=== PATIENT | female | born 1970 | race Caucasian/White ===

== ENCOUNTER 2024-02-25 07:35 | Outpatient (CLI) | payer MEDICAID ==
[2024-02-25 07:46] LABS: BASOPHILS % (AUTO) 0.5 %; EOSINOPHILS # (AUTO) 0.1 10^3/uL (0.0-0.7); EOSINOPHILS % (AUTO) 1.9 %; LYMPHOCYTES # (AUTO) 1.9 10^3/uL (1.5-3.5); LYMPHOCYTES % (AUTO) 32.9 %; MEAN CORPUSCULAR HEMOGLOBIN 29.5 pg (27.0-31.0); MEAN CORPUSCULAR HGB CONC 31.8 g/dL (32.0-36.0); MEAN CORPUSCULAR VOLUME 92.8 fL (81.0-99.0); MEAN PLATELET VOLUME 9.7 fL (7.9-10.8); MONOCYTES # (AUTO) 0.4 10^3/uL (0.0-1.0); MONOCYTES % (AUTO) 7.1 %; NEUTROPHILS # (AUTO) 3.3 10^3/uL (1.5-6.6); NEUTROPHILS % (AUTO) 57.4 %; PLT - PLATELET COUNT 272 10^3/uL (130-450); RED BLOOD COUNT 4.74 10^6/uL (4.20-5.40); WHITE BLOOD COUNT 5.7 x10^3/uL (4.8-10.8)
[2024-02-25 08:00] LABS: ALBUMIN 4.3 g/dL (3.2-5.5); ALBUMIN/GLOBULIN RATIO 1.7 (1.0-2.2); ALKALINE PHOSPHATASE 47 IU/L (42-121); ALT ALANINE AMINOTRANSFERASE 20 IU/L (10-60); AST ASPARTATE AMINOTRANSFERASE 17 IU/L (10-42); BILIRUBIN,TOTAL 0.7 mg/dL (0.2-1.0); BUN - BLOOD UREA NITROGEN 12 mg/dL (6-20); CALCIUM 10.1 mg/dL (8.5-10.3); CARBON DIOXIDE - CO2 31 mmol/L (21-32); CHLORIDE 105 mmol/L (101-111); CHOL/HDL RATIO 3.6 (<4.4); CHOLESTEROL 164 mg/dL; CREATININE 0.9 mg/dL (0.6-1.3); GFR - MDRD 65 (>89); GLUCOSE 101 mg/dL (74-104); HDL CHOLESTEROL 46 mg/dL; LDL CHOLESTEROL,CALCULATED 97 mg/dL; LDL/HDL RATIO 2.1 (<4.4); POTASSIUM 4.1 mmol/L (3.5-4.5); SODIUM 141 mmol/L (135-145); TOTAL PROTEIN 6.9 g/dL (6.4-8.9); TRIGLYCERIDES 105 mg/dL (48-352); VLDL CHOLESTEROL 21 mg/dL
[2024-02-25 08:14] LABS: THYROID STIMULATING HORMONE 4.75 uIU/mL (0.34-5.60)
== END 2024-02-25 07:36 | disposition home or self-care (01) ==
LOC: LAB 07:35
PROVIDERS: ATTEND Nurse Practitioner Family
DX: I10 Essential (primary) hypertension (principal)
CPT/HCPCS: 36415; 80053; 80061; 83721; 84443; 85025

== ENCOUNTER 2024-02-27 14:40 | Outpatient (CLI) | payer MEDICAID ==
--- NOTE | 2024-02-28 09:42 | Mammography Report ---
BILATERAL DIGITAL SCREENING MAMMOGRAM 3D/2D: 02/27/2024 CLINICAL: Baseline exam. Routine screening. No prior exams were available for comparison. There are scattered areas of fibroglandular density in both breasts (category b / 25%-50% glandular t issue). There is a global asymmetry in the right breast central to the nipple middle depth. No other significant masses, calcifications, or other findings are seen in either breast. IMPRESSION: INCOMPLETE: NEEDS ADDITIONAL IMAGING EVALUATION The global asymmetry in the right breast is indeterminate. Comparison to prior exams (if possible) as well as additional views with possible ultrasound are recommended. Based on the Tyrer Cuzick model (a risk assessment model) the patient's lifetime risk is 10.8% and he r 10 year risk is 3.3%. According to the ACR, ACS, and NCCN guidelines, an annual breast MRI exam harrison ng with mammogram is recommended if the patient's lifetime risk is 20% or greater. This exam was interpreted at Station ID: [id number]. NOTE: For mammograms, a report in lay terms will be sent to the patient. Approximately 15% of breast malignancies will not be visualized mammographically. In the management of a palpable breast mass, a negative mammogram must not discourage biopsy of a clinically suspicious lesion. Electronically Signed By: Eveline Aly M.D. lk/:02/27/2024 15:52:02 ACR BI-RADS Category 0: Incomplete 3340F PARENCHYMAL PATTERN: (D) - The breast(s) demonstrate(s) heterogeneously dense fibroglandular parenchy ma. BI-RADS CATEGORY: (0) - 0 Mammo and [place] [id number] Immediate follow-up LATERALITY: (B)
== END 2024-02-27 14:41 | disposition home or self-care (01) ==
LOC: DI 14:40
PROVIDERS: ATTEND Nurse Practitioner Family
DX: Z12.31 Encounter for screening mammogram for malignant neoplasm of breast (principal); R92.8 Other abnormal and inconclusive findings on diagnostic imaging of breast; R92.323 Mammographic fibroglandular density, bilateral breasts

== ENCOUNTER 2024-03-28 08:08 | Outpatient (CLI) | payer MEDICAID ==
--- NOTE | 2024-03-31 09:29 | Mammography Report ---
UNILATERAL RIGHT DIGITAL DIAGNOSTIC MAMMOGRAM 3D/2D: 03/28/2024 CLINICAL: Patient returns today to evaluate a global asymmetry in the right breast. Comparison is made to exam dated: 02/27/2024 mammogram - [facility]. The right breast is heterogeneously dense, which may obscure small masses (category c / 51-75% glandu lar tissue). There is a global asymmetry in the right breast central to the nipple middle depth. This is less pro minent. No other significant masses or calcifications are seen in the breast. IMPRESSION: INCOMPLETE: NEEDS ADDITIONAL IMAGING EVALUATION The global asymmetry in the right breast resembles fibroglandular tissue and is indeterminate. A targeted ultrasound is recommended and will immediately follow. Based on the Tyrer Cuzick model (a risk assessment model) the patient's lifetime risk is 12.7% and he r 10 year risk is 3.9%. According to the ACR, ACS, and NCCN guidelines, an annual breast MRI exam harrison ng with mammogram is recommended if the patient's lifetime risk is 20% or greater. This exam was interpreted at Station ID: [id number]. NOTE: For mammograms, a report in lay terms will be sent to the patient. Approximately 15% of breast malignancies will not be visualized mammographically. In the management of a palpable breast mass, a negative mammogram must not discourage biopsy of a clinically suspicious lesion. Electronically Signed By: Diaz Gentile M.D. slc/:03/28/2024 08:35:52 ACR BI-RADS Category 0: Incomplete 3340F PARENCHYMAL PATTERN: (D) - The breast(s) demonstrate(s) heterogeneously dense fibroglandular qamar abarca. BI-RADS CATEGORY: (0) - 0 Ultrasound [id number] Immediate follow-up LATERALITY: (B)
--- NOTE | 2024-03-31 09:30 | Ultrasound Report ---
LIMITED ULTRASOUND OF RIGHT BREAST: 03/28/2024 CLINICAL: Patient returns today to evaluate a focal asymmetry in the right breast. Comparison is made to exams dated: 03/28/2024 mammogram and 02/27/2024 mammogram - [facility]. Color flow and real-time ultrasound of the right breast 12 o'clock, and retroareolar regions were per formed. Willis scale images of the real-time examination were reviewed. No significant abnormalities were seen sonographically in the right breast. IMPRESSION: NEGATIVE There is no sonographic evidence of malignancy. No mass or cyst. Exam findings were conveyed to the patient. A 1 year screening mammogram is recommended. This exam was interpreted at Station ID: [id number]. Electronically Signed By: Diaz Gentile M.D. slc/:03/28/2024 08:48:23 Ultrasound BI-RADS: 1 Negative BI-RADS CATEGORY: (1) - 1 RECOMMENDATION: (ANNUAL) - Recommend routine annual screening mammography. [id number] 1 year screening LATERALITY: (B)
== END 2024-03-28 08:09 | disposition home or self-care (01) ==
LOC: DI 08:08
PROVIDERS: ATTEND Nurse Practitioner Family
DX: R92.8 Other abnormal and inconclusive findings on diagnostic imaging of breast (principal)

== ENCOUNTER 2024-05-06 08:00 | Outpatient (CLI) | payer MEDICAID | END 2024-05-06 08:01 | disposition home or self-care (01) | LOC: LAB.R 08:00 | PROVIDERS: ATTEND Nurse Practitioner | DX: L01.00 Impetigo, unspecified (principal) | CPT/HCPCS: 87070; 87205 ==

== ENCOUNTER 2024-08-01 13:50 | Outpatient (CLI) | payer OTHER ==
--- NOTE | 2024-08-03 22:55 | Ultrasound Report ---
PROCEDURE: Carotid Doppler Complete INDICATIONS: HTN, FAM HX OF DC, FAM HX OF FAMILIAL HYPERLIPID TECHNIQUE: Duplex carotid ultrasound was obtained and agricultural sales representative images were recorded with veloc ity measurements. Any estimate of stenosis was obtained with reference to standards endorsed by the [employer] COMPARISON: None. FINDINGS: Right side: Brachial blood pressure: 123/75 mm Hg. Common carotid artery peak systolic velocity: 73 cm/sec. Internal carotid artery peak systolic velocity: 99 cm/sec. Internal carotid artery end diastolic velocity: 38 cm/sec. External carotid artery peak systolic velocity: 92 cm/sec. ICA/CCA peak systolic ratio: 1.4 . Willis scale imaging description: Unremarkable Percent internal carotid artery stenosis: 0. Vertebral artery: Flow direction is antegrade. Left side: Brachial blood pressure: 124/74 mm Hg. Common carotid artery peak systolic velocity: 73 cm/sec. Internal carotid artery peak systolic velocity: 90 cm/sec. Internal carotid artery end diastolic velocity: 26 cm/sec. External carotid artery peak systolic velocity: 84 cm/sec. ICA/CCA peak systolic ratio: 1.2 . Willis scale imaging description: Unremarkable Percent internal carotid artery stenosis: 0. Vertebral artery: Flow direction is antegrade. IMPRESSION: 1. Normal duplex carotid ultrasound. No proximal ICA stenosis. Reviewed by: Christiano Maxwell MD on 08/03/2024 9:54 PM AMY Approved by: Christiano Maxwell MD on 08/03/2024 9:54 PM AMY Station ID: [id number]
== END 2024-08-01 13:51 | disposition home or self-care (01) ==
LOC: DI 13:50
PROVIDERS: ATTEND Nurse Practitioner Family
DX: E78.2 Mixed hyperlipidemia (principal); I10 Essential (primary) hypertension; Z82.49 Family history of ischemic heart disease and other diseases of the circulatory system; Z83.49 Family history of other endocrine, nutritional and metabolic diseases
CPT/HCPCS: 93880

== ENCOUNTER 2024-08-01 13:53 | Outpatient (CLI) | payer SELFPAY ==
--- NOTE | 2024-08-01 16:47 | CT Report ---
PROCEDURE: CT heart coronary calcium scoring without contrast TECHNIQUE: MDCT non-contrast cardiac gated images were obtained from the tracie through the inferior margin of the heart. Calcium score was obtained by post-processing with external software. Automated exposure control was used to reduce patient radiation dose. INDICATION: CAD screening, low or intermediate risk COMPARISON: None FINDINGS: Image quality: Diagnostic Agatston method: Total calcium score: 0 L main: 0 LAD: 0 LCX: 0 RCA: 0 Heart findings: Mitral annular calcifications: No significant calcifications. Aortic valve: No significant valvular calcifications. Chambers: No significant enlargement on this non-dynamic study. Pericardium: No effusion. Other findings (note the chest is incompletely imaged on this limited non-contrast study): Lungs and pleura: No pleural effusion. No actionable lung nodules. Mediastinum: No pathologic lymphadenopathy. Upper abdomen: Partially seen, unremarkable. Bones: No acute or suspicious abnormality. IMPRESSION: Coronary calcium score of 0. Incidentals: None significant. Coronary artery calcium scores have been identified as an independent risk factor for future acute co ronary syndromes and correlate with the quantity of coronary atherosclerotic plaque. However, they do not correlate directly with the degree of stenosis. A low score does not exclude a significant coron alyse artery stenosis. Risk of future coronary events should be assessed with individual patient risk factors and medical hi story. Consider correlation with risk percentiles using the ELENA (Multi-Ethnic Study of Atheroscleros is) calculator. CAC-DRS Categories: A0: 0, very low risk, consider repeat coronary calcium study every 3-7 years for surveillance. A1: 1-99, mildly increased risk, consider moderate-intensity statin A2: 100-299: moderately increased risk, consider moderate to high-intensity statin + ASA 81mg A3: >300: moderately to severely increased risk, consider high-intensity statin + ASA 81mg Reviewed by: Kofi Myers MD on 08/01/2024 4:45 PM PDT Approved by: Kofi Myers MD on 08/01/2024 4:45 PM PDT Station ID: [id number]
== END 2024-08-01 13:54 | disposition home or self-care (01) ==
LOC: DI 13:53
PROVIDERS: ATTEND Nurse Practitioner Family
DX: E78.2 Mixed hyperlipidemia (principal); I10 Essential (primary) hypertension; Z82.49 Family history of ischemic heart disease and other diseases of the circulatory system; Z83.49 Family history of other endocrine, nutritional and metabolic diseases

== ENCOUNTER 2024-08-13 06:20 | Day surgery (SDC) | payer BC, MEDICAID ==
[2024-08-13] MEDS: LACTATED RINGERS 1,000 ML IV ONE (06:37)
[2024-08-13] MEDS ORDERED: PROPOFOL 500 MG/50 ML 500 MG/50 ML VIAL ONE (07:00)
[2024-08-13] MEDS ORDERED: MIDAZOLAM 2 MG/2 ML VIAL ONE (07:06)
[2024-08-13] MEDS ORDERED: LIDOCAINE-MPF 2% 5 ML VIAL ONE (07:06)
--- NOTE | 2024-08-13 07:25 | ANESTHESIA ---
Pre-Anesthesia VS, & Labs - Diagnosis screening - Procedure colonoscopy Height: 5 ft 7 in Weight (kg): 88.9 kg Body Mass Index: 30.7 BMI Classification: Obese - NPO Last Fluid Intake: 0415 prep - Is Patient ?: No (hysterectomy) Home Medications and Allergies Home Medications: Ambulatory Orders Dupilumab [Dupixent Pen] 200 mg SQ 08/12/24 Lisinopril [Zestril] 20 mg PO DAILY 08/12/24 Rosuvastatin Calcium [Crestor] 20 mg PO DAILY 08/12/24 Dupilumab [Dupixent Pen] 200 mg SQ 08/12/24 Lisinopril [Zestril] 20 mg PO DAILY 08/12/24 Rosuvastatin Calcium [Crestor] 20 mg PO DAILY 08/12/24 Allergies/Adverse Reactions: Allergies Allergy/AdvReac Type Severity Reaction Status Date / Time No Known Drug Allergies Allergy Verified 08/13/24 06:47 Anes History & Medical History - Anesthetic History Anesthesia Complications: reports: No previous complications - Medical History Cardiovascular: reports: Hypertension (lisinopril; didn't take today), High cholesterol Pulmonary: reports: None Gastrointestinal: reports: None Urinary: reports: None Musculoskeletal: reports: None Endocrine/Autoimmune: reports: None Skin: reports: Eczema Smoking Status: Never smoker Psychosocial: reports: No issues indicated - Surgical History Eyes Ears Nose Throat (EENT): reports: Tonsil/Adenoidectomy Gynecologic: reports: Hysterectomy Results - EKG Results EKG Comparison: Reviewed EKG Exam General: Alert, Oriented x3 Dental: WNL Mouth Openin Fingerbreadth Neck Mobility: Normal Mallampati classification: II Thyromental Distance: 4-6 cm Respiratory: Lungs clear Cardiovascular: Regular rate Plan Anesthesia Type: Total IV Consent for Procedure(s) Verified and Reviewed: Yes Code Status: Attempt Resuscitation ASA classification: 2-Mild systemic disease Is this case an emergency?: No
--- NOTE | 2024-08-13 07:32 | HISTORY & PHYSICAL EXAMINATION ---
HPI - History of Present Illness HPI Comment/Other: 53yoF scheduled as "direct scope" for her first screening colonoscopy. She has no family history of colon cancer. She denies abdominal pain, n/v, anorectal pain or bleeding, change in stools or d/c. Bowel prep tolerated well, yellow liquid stool this morning. PMH/PSH - Past Medical History Cardiovascular: positive: Hypertension (lisinopril; didn't take today), High cholesterol Respiratory: positive: None Endocrine/Autoimmune: positive: None GI: positive: None : positive: None HEENT: positive: None Psych: positive: None Musculoskeletal: positive: None Derm: positive: Eczema MRSA Hx?: No - Past Surgical History /DIAL MOUNTER: positive: Hysterectomy HEENT: positive: Tonsil/Adenoidectomy Social & Family Hx - Social History Smoking Status: Never smoker Meds/Allgy - Home Medications Home Medications: Ambulatory Orders Medication Instructions Recorded Confirmed Dupilumab [Dupixent Pen] 200 mg SQ 08/12/24 Lisinopril [Zestril] 20 mg PO DAILY 08/12/24 08/12/24 Rosuvastatin Calcium [Crestor] 20 mg PO DAILY 08/12/24 08/12/24 - Allergies Allergies/Adverse Reactions: Allergies Allergy/AdvReac Type Severity Reaction Status Date / Time No Known Drug Allergies Allergy Verified 08/13/24 06:47 Exam - Vital Signs Reviewed Vital Signs: Yes - Physical Exam General Appearance: positive: No acute distress, Alert Eyes Bilateral: positive: Normal inspection, PERRL ENT: positive: ENT inspection nml, Pharynx nml, No signs of dehydration Neck: positive: Nml inspection, Thyroid nml, No JVD, Trachea midline Respiratory: positive: Chest non-tender, No respiratory distress, Breath sounds nml Cardiovascular: positive: Regular rate & rhythm, No murmur, No gallop Peripheral Pulses: positive: 2+ Abdomen: positive: Non-tender, No organomegaly, Nml bowel sounds, No distention Back: positive: Nml inspection Skin: positive: Color nml, No rash, Warm, Dry Extremities: positive: Non-tender, Full ROM, Nml appearance Neurologic/Psychiatric: positive: Oriented x3, Mood/affect nml Impression/Plan - Problem List Problem List: 53yoF due for first screening colonoscopy. No alarm sx or family history of colon cancer. Indications and risks of colonoscopy discussed (to include risk of bowl perforation or bleeding, risks of sedation), and she would like to proced. Kerry Chavez DO, FACS General Surgeon, [facility]
[2024-08-13] MEDS ORDERED: GLYCOPYRROLATE 1 MG/5 ML VIAL ONE (08:04)
[2024-08-13] MEDS: LACTATED RINGERS 500 ML IV ONE ×2 (08:25→08:46)
[2024-08-13 08:49] VITALS: BP 128/76; O2SAT 100
--- NOTE | 2024-08-13 11:35 | ANESTHESIA POST OP EVALUATION ---
Anesthesia Post Eval - Post Anesthesia Eval Vitals: Last Vital Signs Temp 36.4 C L 08/13/24 08:46 Pulse 61 08/13/24 08:46 Resp 16 08/13/24 08:46 BP 128/76 08/13/24 08:46 Pulse Ox 100 08/13/24 08:46 O2 Flow Rate CV Function Including HR & BP: Stable Pain Control: Satisfactory Nausea & Vomiting: Negative Mental Status: Baseline Respiratory Status: Airway Patent Hydration Status: Satisfactory Anesthesia Complications: None
== END 2024-08-13 06:21 | disposition home or self-care (01) ==
LOC: SDS 06:20
PROVIDERS: ATTEND Surgery
DX: Z12.11 Encounter for screening for malignant neoplasm of colon (principal); K57.30 Diverticulosis of large intestine without perforation or abscess without bleeding; K64.0 First degree hemorrhoids; E66.9 Obesity, unspecified; Z68.30 Body mass index [BMI] 30.0-30.9, adult; I10 Essential (primary) hypertension
CPT/HCPCS: 45378; J7120